=== PATIENT | female | born 1945 | race Caucasian/White ===

== ENCOUNTER 2016-06-22 12:16 | Emergency (ER) | payer OTHER ==
--- NOTE | 2016-06-22 12:46 | DIAGNOSTIC IMAGING REPORT ---
PROCEDURE: CT HEAD WITHOUT CONTRAST INDICATION: STROKE TECHNIQUE: Axial CT images were acquired through the head. Coronal and sagittal reformations were created. COMPARISON: None. FINDINGS: No intracranial hemorrhage or extraaxial fluid collections. Ventricles are normal in size, shape and position. There is no mass, mass effect or midline shift. The mosquera-white matter differentiation is normal. There is no edema. The calvarium is intact. The paranasal sinuses and mastoid air cells are normally aerated. The extracranial soft tissues and orbits are normal. IMPRESSION: 1. No CT evidence of acute intracranial process. 2. Findings discussed with emergency department at 12:[address] scans at this facility use dose modulation, iterative reconstruction, and/or weight-based dosing when appropriate to reduce radiation dose to as low as reasonably achievable.
--- NOTE | 2016-06-22 13:00 | DIAGNOSTIC IMAGING REPORT ---
PROCEDURE: XR CHEST 1 VIEW INDICATION: ALTERED MENTAL STATUS TECHNIQUE: Portable AP view 12:47 p.m. COMPARISON: None. FINDINGS: Lungs are clear. Heart and mediastinum are normal. Thorax is normal. IMPRESSION: 1. Negative chest.
--- NOTE | 2016-06-22 13:55 | ED CLINICAL REPORT ---
Clinical Report - Physicians/Mid Levels [facility] [address] [place] [address] 06/22/2016 12:15 Patient: TIFFANIE HAMILTON Time Seen: 12:20. Arrived- By ambulance. Historian- EMS personnel. HISTORY OF PRESENT ILLNESS Chief Complaint: CHANGED MENTAL STATUS and CONFUSION. The patient has been confused and is described as having decreased responsiveness. (The patient was attending an appointment with the counselor next door at [facility]. Apparently during the visit she had become somnolent and less responsive. Medics report that when they arrived there she was conversant. However they say she also seemed anxious and was slow to respond. They said that a FAST exam was unremarkable.). This started just prior to arrival and is still present. It was abrupt in onset. No weakness or numbness. No difficulty walking. Usually is alert and oriented X3 and usually has normal mobility. Similar symptoms previously: Several times. ( She reports that in the past she had had a traumatic head injury. She had subsequent bouts of "seizures." However, she denies having ever been on any seizure medications.). REVIEW OF SYSTEMS No chills, fever, sweats, calf pain or chest pain. No cough, difficulty breathing, pedal edema, palpitations or abdominal pain. No constipation, diarrhea, nausea, vomiting or urinary problems. All systems otherwise negative, except as recorded above. PAST HISTORY ( PCP - [facility]). Problems: Head Injury. Seizure. Medications: Tums Oral. Pepto bisbo . Imodium A-D Oral. Allergies: No Known Drug Allergy. SOCIAL HISTORY Never smoker. No alcohol use or drug use. Residence: The patient has had multiple social stressors recently. She has recently been evicted from her apartment. She has 1 month to find another place to live. FAMILY HISTORY Denies family medical history. PHYSICAL EXAM Appearance: Alert. (tremulous). Head: Head atraumatic. Eyes: Pupils equal, round and reactive to light. ENT: Pharynx normal. Neck: Normal inspection. Neck supple. No meningeal signs or carotid bruit. CVS: Normal heart rate and rhythm. Heart sounds normal. Respiratory: No respiratory distress. Breath sounds normal. Abdomen: Soft and nontender. No organomegaly. Back: Normal inspection. Skin: Skin warm and dry. Normal skin color. No rash. Normal skin turgor. Extremities: Extremities exhibit normal ROM. No calf tenderness. No lower extremity edema. Neuro: Alert. Oriented X 3. Speech normal. Cranial nerves normal (as tested). No cerebellar findings. No motor deficit. No sensory deficit. LABS, X-RAYS, AND EKG EKG: Normal sinus rhythm. Rate: 67. Incomplete RBBB. Left axis deviation. Prior EKG unavailable. The study has been independently viewed by me. Chest X-ray: Normal Chest X-Ray. CT Head: No acute changes. The study was interpreted by the radiologist and contemporaneously by me. Laboratory Tests: UA-Culture if indicated: (MIYA: 06/22/2016 12:50) ( [facility] Final results Test Result Flag Units (Reference) URINE COLOR YELLOW URINE APPEARANCE CLEAR URINE GLUCOSE NEGATIVE (NEGATIVE) URINE BILIRUBIN NEGATIVE (NEGATIVE) URINE KETONE NEGATIVE (NEGATIVE) URINE SPECIFIC GRAVITY 1.010 (1.010-1.030) URINE PH 6.0 (5.0-8.0) URINE PROTEIN NEGATIVE (NEGATIVE) URINE UROBILINOGEN 0.2 EU/dL (0.2-1.0) URINE NITRITE NEGATIVE (NEGATIVE) URINE BLOOD TRACE-LYSED (NEGATIVE) URINE LEUK ESTERASE NEGATIVE (NEGATIVE) URINE RBC 0-1 rbc/hpf (0-1) URINE WBC 0-1 wbc/hpf (0-1) URINE EPITHELIAL CELLS 0-1 EPI/hpf (0-5) URINE BACTERIA TRACE (<1+) (NONE SEEN) URINE COMMENT CULT NOT INDICATED URINE CULTURES ARE SET-UP BASED ON THE FOLLOWING CRITERIA:POSITIVE NITRITEPOSITIVE LEUKOCYTE ESTERASEGREATER THAN 10 WHITE BLOOD CELLSMODERATE (2+) OR GREATER BACTERIA CBC w Diff: (MIYA: 06/22/2016 12:30) ( [facility] 06/22/2016 12:41) Final results Test Result Flag Units (Reference) WHITE BLOOD COUNT 6.8 K/uL (4.5-11.5) RED BLOOD COUNT 4.78 M/uL (4.00-5.20) HEMOGLOBIN 13.9 gm/dL (12.0-16.0) HEMATOCRIT 42.1 % (36.0-46.0) MEAN CELL VOLUME 88 fL (80-100) MEAN CORPUSCULAR HGB 29 pg (26-34) MEAN CORPUSCULAR HGB CONC 33 g/dL (31-37) RED CELL DISTRIBUTION WIDTH 13.0 % (11.6-14.8) PLATELET COUNT 204 K/uL (150-400) NEUTROPHIL % 49.0 L % (50-75) LYMPH % 36.7 % (25-40) MONO % 8.0 % (3-14) EOSINOPHIL % 5.7 H % (0-4) BASOPHIL % 0.6 % (0-2) PT with INR: (MIYA: 06/22/2016 12:30) ( [facility] 06/22/2016 12:49) Final results Test Result Flag Units (Reference) INR 1.0 (0.8-1.2) Low Intensity Therapy: INR 1.5-2.0 PT range 18.5-23.1Mod.Intensity Therapy: INR 2.0-3.0 PT range 23.1-31.5High Intensity Therapy: INR 2.5-3.5 PT range 27.4-35.5High Intensity Therapy 2: INR 3.0-4.0 PT range 31.5-39.3 APTT 31 SECONDS (24-34) D-DIMER QUANTITATIVE 0.42 ug/mLFEU (0.27-0.52) The primary value of this quantitative assay relates toits negative predictive value (i.e. exclusion) of pulmonaryembolism/deep vein thrombosis/DIC.Elevated levels of d-dimer may also occur with:, age, cancer, inflammation, liver disease,post-op, infection, hematoma, coronary disease, peripheralarteriopathy, bleeding disorders and thrombolytic treatment.Results should be correlated with other clinical andradiological data.Testing Methodology: Latex Immunoassay Urine Drug Screen: (MIYA: 06/22/2016 12:50) ( [facility] 13[facility]36[facility] Final results Test Result Flag Units (Reference) AMPHETAMINE/METHAMPHETAMINE NEGATIVE (NEGATIVE) BARBITURATE NEGATIVE (NEGATIVE) BENZODIAZEPINE NEGATIVE (NEGATIVE) CANNABINOID NEGATIVE (NEGATIVE) COCAINE NEGATIVE (NEGATIVE) ECSTASY NEGATIVE (NEGATIVE) METHADONE NEGATIVE (NEGATIVE) OPIATE NEGATIVE (NEGATIVE) The urine drug screen is a qualitative screening test fordrug overdose and abuse. All screen results should beconsidered as presumptive.Drugs screened for are as follows:BenzodiazepinesCocaineAmphetamines/MetamphetaminesTHC (Tetrahydrocannabinol)OpiatesBarbituratesEcstasyMethadonePositive results are unconfirmed. For confirmation, notifythe lab for the specimen to be sent to the reference lab.All confirmations must be performed by a differentmethodology.The ingestion of natural herbal and plant productscontaining Ephedra/Ephedra metabolites can produce in urineone or more substances capable of cross reacting withamphetamine/methamphetamine immunoassays. These testsprovide a preliminary result only. A more specificalternative chemical method must be used to obtain aconfirmed analytical result. BNP: (MIYA: 06/22/2016 12:30) ( [facility] 06/22/2016 13:00) Final results Test Result Flag Units (Reference) B-TYPE NATRIURETIC PEPTIDE 50.7 pg/ml (5-100) CMP: (MIYA: 06/22/2016 12:30) ( [facility] 06/22/2016 13:03) Final results Test Result Flag Units (Reference) GLUCOSE 79 mg/dL (70-110) BUN 17 mg/dL (7-18) CREATININE 0.8 mg/dL (0.6-1.3) Estimated GFR >60 mL/min Estimated GFR- >60 mL/min Note: Persistent reduction over 3 months in eGFR<60 mL/min/1.73 m2 defines CKD. Patients with eGFR values>=60 mL/min/1.73 m2 may also have CKD if evidence ofpersistent proteinuria. Additional information may be foundat www.kidney.org. SODIUM 141 mmol/L (136-145) POTASSIUM 3.6 mmol/L (3.5-5.1) CHLORIDE 105 mmol/L (98-107) CARBON DIOXIDE 27 mmol/L (21-32) CALCIUM 9.4 mg/dL (8.5-10.1) TOTAL PROTEIN 7.4 g/dL (6.4-8.2) ALBUMIN 3.7 g/dL (3.3-5.0) BILIRUBIN, TOTAL 0.3 mg/dL (0.0-1.0) ALKALINE PHOSPHATASE 96 U/L (46-116) AST (SGOT) 28 U/L (15-37) ALT (SGPT) 31 U/L (12-78) LIPASE 285 U/L (73-393) AMYLASE 80 U/L (25-115) CPK 66 U/L (24-260) TROPONIN I <0.05 ng/mL (0.00-1.5) TROPONIN REFERENCE RANGE:<0.1 NEGATIVE0.1-1.5 INDETERMINANT>1.5 POSITIVE ETHYL ALCOHOL < 3.0 L mg/dL (3-10) . PROGRESS AND PROCEDURES Course of Care: Patient is stable. Patient/family counseled. Old medical records reviewed. Disposition: Discharged. Condition: stable. CLINICAL IMPRESSION Acute mental status change with lethargy and confusion (resolved). Possible postictal state. INSTRUCTIONS No driving or operating machinery. Warnings: Further evaluation is necessary. GENERAL WARNINGS: Return or contact your physician immediately if your condition worsens or changes unexpectedly, if not improving as expected, or if other problems arise. Your Current Medications: CONTINUE TAKING THE FOLLOWING MEDICATIONS: Imodium A-D Oral. Pepto bisbo *. Tums Oral. Follow-up: Follow up with a neurologist- as recommended by your primary care physician. Understanding of the discharge instructions verbalized by patient. Follow-up with: [facility], , , [address], , [place], [address] Follow up tomorrow. Call for an appointment. (Electronically signed by Indra Carreno MD 06/30/2016 1:53)
--- NOTE | 2016-06-22 13:55 | ED CLINICAL REPORT ---
Clinical Report - Physicians/Mid Levels [facility] [address] [place] [address] 06/22/2016 12:15 Patient: TIFFANIE HAMILTON Time Seen: 12:20. Arrived- By ambulance. Historian- EMS personnel. HISTORY OF PRESENT ILLNESS Chief Complaint: CHANGED MENTAL STATUS and CONFUSION. The patient has been confused and is described as having decreased responsiveness. (The patient was attending an appointment with the counselor next door at [facility]. Apparently during the visit she had become somnolent and less responsive. Medics report that when they arrived there she was conversant. However they say she also seemed anxious and was slow to respond. They said that a FAST exam was unremarkable.). This started just prior to arrival and is still present. It was abrupt in onset. No weakness or numbness. No difficulty walking. Usually is alert and oriented X3 and usually has normal mobility. Similar symptoms previously: Several times. ( She reports that in the past she had had a traumatic head injury. She had subsequent bouts of "seizures." However, she denies having ever been on any seizure medications.). REVIEW OF SYSTEMS No chills, fever, sweats, calf pain or chest pain. No cough, difficulty breathing, pedal edema, palpitations or abdominal pain. No constipation, diarrhea, nausea, vomiting or urinary problems. All systems otherwise negative, except as recorded above. PAST HISTORY ( PCP - [facility]). Problems: Head Injury. Seizure. Medications: Tums Oral. Pepto bisbo . Imodium A-D Oral. Allergies: No Known Drug Allergy. SOCIAL HISTORY Never smoker. No alcohol use or drug use. Residence: The patient has had multiple social stressors recently. She has recently been evicted from her apartment. She has 1 month to find another place to live. FAMILY HISTORY Denies family medical history. PHYSICAL EXAM Appearance: Alert. (tremulous). Head: Head atraumatic. Eyes: Pupils equal, round and reactive to light. ENT: Pharynx normal. Neck: Normal inspection. Neck supple. No meningeal signs or carotid bruit. CVS: Normal heart rate and rhythm. Heart sounds normal. Respiratory: No respiratory distress. Breath sounds normal. Abdomen: Soft and nontender. No organomegaly. Back: Normal inspection. Skin: Skin warm and dry. Normal skin color. No rash. Normal skin turgor. Extremities: Extremities exhibit normal ROM. No calf tenderness. No lower extremity edema. Neuro: Alert. Oriented X 3. Speech normal. Cranial nerves normal (as tested). No cerebellar findings. No motor deficit. No sensory deficit. LABS, X-RAYS, AND EKG EKG: Normal sinus rhythm. Rate: 67. Incomplete RBBB. Left axis deviation. Prior EKG unavailable. The study has been independently viewed by me. Chest X-ray: Normal Chest X-Ray. CT Head: No acute changes. The study was interpreted by the radiologist and contemporaneously by me. Laboratory Tests: UA-Culture if indicated: (MIYA: 06/22/2016 12:50) ( [facility] Final results Test Result Flag Units (Reference) URINE COLOR YELLOW URINE APPEARANCE CLEAR URINE GLUCOSE NEGATIVE (NEGATIVE) URINE BILIRUBIN NEGATIVE (NEGATIVE) URINE KETONE NEGATIVE (NEGATIVE) URINE SPECIFIC GRAVITY 1.010 (1.010-1.030) URINE PH 6.0 (5.0-8.0) URINE PROTEIN NEGATIVE (NEGATIVE) URINE UROBILINOGEN 0.2 EU/dL (0.2-1.0) URINE NITRITE NEGATIVE (NEGATIVE) URINE BLOOD TRACE-LYSED (NEGATIVE) URINE LEUK ESTERASE NEGATIVE (NEGATIVE) URINE RBC 0-1 rbc/hpf (0-1) URINE WBC 0-1 wbc/hpf (0-1) URINE EPITHELIAL CELLS 0-1 EPI/hpf (0-5) URINE BACTERIA TRACE (<1+) (NONE SEEN) URINE COMMENT CULT NOT INDICATED URINE CULTURES ARE SET-UP BASED ON THE FOLLOWING CRITERIA:POSITIVE NITRITEPOSITIVE LEUKOCYTE ESTERASEGREATER THAN 10 WHITE BLOOD CELLSMODERATE (2+) OR GREATER BACTERIA CBC w Diff: (MIYA: 06/22/2016 12:30) ( [facility] 12[facility]41[facility] Final results Test Result Flag Units (Reference) WHITE BLOOD COUNT 6.8 K/uL (4.5-11.5) RED BLOOD COUNT 4.78 M/uL (4.00-5.20) HEMOGLOBIN 13.9 gm/dL (12.0-16.0) HEMATOCRIT 42.1 % (36.0-46.0) MEAN CELL VOLUME 88 fL (80-100) MEAN CORPUSCULAR HGB 29 pg (26-34) MEAN CORPUSCULAR HGB CONC 33 g/dL (31-37) RED CELL DISTRIBUTION WIDTH 13.0 % (11.6-14.8) PLATELET COUNT 204 K/uL (150-400) NEUTROPHIL % 49.0 L % (50-75) LYMPH % 36.7 % (25-40) MONO % 8.0 % (3-14) EOSINOPHIL % 5.7 H % (0-4) BASOPHIL % 0.6 % (0-2) PT with INR: (MIYA: 06/22/2016 12:30) ( [facility]2016 12:49[facility] Final results Test Result Flag Units (Reference) INR 1.0 (0.8-1.2) Low Intensity Therapy: INR 1.5-2.0 PT range 18.5-23.1Mod.Intensity Therapy: INR 2.0-3.0 PT range 23.1-31.5High Intensity Therapy: INR 2.5-3.5 PT range 27.4-35.5High Intensity Therapy 2: INR 3.0-4.0 PT range 31.5-39.3 APTT 31 SECONDS (24-34) D-DIMER QUANTITATIVE 0.42 ug/mLFEU (0.27-0.52) The primary value of this quantitative assay relates toits negative predictive value (i.e. exclusion) of pulmonaryembolism/deep vein thrombosis/DIC.Elevated levels of d-dimer may also occur with:, age, cancer, inflammation, liver disease,post-op, infection, hematoma, coronary disease, peripheralarteriopathy, bleeding disorders and thrombolytic treatment.Results should be correlated with other clinical andradiological data.Testing Methodology: Latex Immunoassay Urine Drug Screen: (MIYA: 06/22/2016 12:50) ( [facility]36[facility] Final results Test Result Flag Units (Reference) AMPHETAMINE/METHAMPHETAMINE NEGATIVE (NEGATIVE) BARBITURATE NEGATIVE (NEGATIVE) BENZODIAZEPINE NEGATIVE (NEGATIVE) CANNABINOID NEGATIVE (NEGATIVE) COCAINE NEGATIVE (NEGATIVE) ECSTASY NEGATIVE (NEGATIVE) METHADONE NEGATIVE (NEGATIVE) OPIATE NEGATIVE (NEGATIVE) The urine drug screen is a qualitative screening test fordrug overdose and abuse. All screen results should beconsidered as presumptive.Drugs screened for are as follows:BenzodiazepinesCocaineAmphetamines/MetamphetaminesTHC (Tetrahydrocannabinol)OpiatesBarbituratesEcstasyMethadonePositive results are unconfirmed. For confirmation, notifythe lab for the specimen to be sent to the reference lab.All confirmations must be performed by a differentmethodology.The ingestion of natural herbal and plant productscontaining Ephedra/Ephedra metabolites can produce in urineone or more substances capable of cross reacting withamphetamine/methamphetamine immunoassays. These testsprovide a preliminary result only. A more specificalternative chemical method must be used to obtain aconfirmed analytical result. BNP: (MIYA: 06/22/2016 12:30) ( [facility] 06/22/2016 13:00) Final results Test Result Flag Units (Reference) B-TYPE NATRIURETIC PEPTIDE 50.7 pg/ml (5-100) CMP: (MIYA: 06/22/2016 12:30) ( [facility] 06/22/2016 13:03) Final results Test Result Flag Units (Reference) GLUCOSE 79 mg/dL (70-110) BUN 17 mg/dL (7-18) CREATININE 0.8 mg/dL (0.6-1.3) Estimated GFR >60 mL/min Estimated GFR- >60 mL/min Note: Persistent reduction over 3 months in eGFR<60 mL/min/1.73 m2 defines CKD. Patients with eGFR values>=60 mL/min/1.73 m2 may also have CKD if evidence ofpersistent proteinuria. Additional information may be foundat www.kidney.org. SODIUM 141 mmol/L (136-145) POTASSIUM 3.6 mmol/L (3.5-5.1) CHLORIDE 105 mmol/L (98-107) CARBON DIOXIDE 27 mmol/L (21-32) CALCIUM 9.4 mg/dL (8.5-10.1) TOTAL PROTEIN 7.4 g/dL (6.4-8.2) ALBUMIN 3.7 g/dL (3.3-5.0) BILIRUBIN, TOTAL 0.3 mg/dL (0.0-1.0) ALKALINE PHOSPHATASE 96 U/L (46-116) AST (SGOT) 28 U/L (15-37) ALT (SGPT) 31 U/L (12-78) LIPASE 285 U/L (73-393) AMYLASE 80 U/L (25-115) CPK 66 U/L (24-260) TROPONIN I <0.05 ng/mL (0.00-1.5) TROPONIN REFERENCE RANGE:<0.1 NEGATIVE0.1-1.5 INDETERMINANT>1.5 POSITIVE ETHYL ALCOHOL < 3.0 L mg/dL (3-10) . PROGRESS AND PROCEDURES Course of Care: Patient is stable. Patient/family counseled. Old medical records reviewed. Disposition: Discharged. Condition: stable. CLINICAL IMPRESSION Acute mental status change with lethargy and confusion (resolved). Possible postictal state. INSTRUCTIONS No driving or operating machinery. Warnings: Further evaluation is necessary. GENERAL WARNINGS: Return or contact your physician immediately if your condition worsens or changes unexpectedly, if not improving as expected, or if other problems arise. Your Current Medications: CONTINUE TAKING THE FOLLOWING MEDICATIONS: Imodium A-D Oral. Pepto bisbo *. Tums Oral. Follow-up: Follow up with a neurologist- as recommended by your primary care physician. Understanding of the discharge instructions verbalized by patient. Follow-up with: [facility], , , [address], , [place], [address] Follow up tomorrow. Call for an appointment. (Electronically signed by Indra Carreno MD 06/30/2016 1:53)
--- NOTE | 2016-06-22 13:55 | ED NURSING NOTES ---
Clinical Report - Nurses [facility] [place] [address] 06/22/2016 12:15 Patient: TIFFANIE HAMILTON TRIAGE Triage time 12:15. Acuity: LEVEL 2. Chief Complaint: WEAKNESS and DISORIENTED and DECREASED RESPONSIVENESS. 12:24 06/22/16. DORIS COMA SCORE: Doris Coma Scale: 14- eyes open spontaneously (4); best verbal response- disoriented (4); best motor response- obeys commands (6). --12:24 Marli Madrid R.N. 12:24 06/22/16. HR: 80. O2 saturation: 100%. --12:24 aMrli Madrid R.N. 12:28 06/22/16. BP: 168/76. HR: 79. O2 saturation: 99% on room air. Temp: 97.6 F (oral). --12:30 Marli Madrid R.N. Weight: 70.4 kg measured. Height/Length: 67 inches Estimated. BMI: 24.3. --12:16 Marli Madrid R.N. Medications Imodium A-D Oral. --12:56 Ni Ruggiero R.N. Pepto bisbo . --12:56 iN Ruggiero R.N. Tums Oral. --12:56 Ni Ruggiero R.N. Allergies No Known Drug Allergy. --12:57 Ni Ruggiero R.N. History Arrived by private vehicle. Historian: EMS. Primary physician (EITAN wesley [facility]). ( began "slouching" to the right at a counseling session at [facility], disoriented, unable to answer questions.). This started just prior to arrival. Treatment COMMERCIAL ILLUSTRATOR: None. Finger stick glucose performed (138). BP: 194/100. HR: 78. RR: 24. Temp: 97.8. FALL RISK ASSESSMENT: Fall risk assessment completed. No fall risk identified. NUTRITIONAL RISK ASSESSMENT: The nutritional risk assessment revealed no deficiencies. FUNCTIONAL ASSESSMENT: Functional assessment: no impairments noted. LEARNING NEEDS ASSESSMENT: The learning needs assessment revealed no barriers. SKIN INTEGRITY ASSESSMENT: Skin integrity risk assessment completed. No skin integrity risk identified. --12:24 Marli Madrid R.N. PROBLEMS: Head Injury. Seizure. --12:29 Marli Madrid R.N. Interventions ID band on patient. To treatment room. --12:24 Marli Madrid R.N. PHYSICAL ASSESSMENT 12:26 06/22/16. To room via stretcher. GENERAL / NEURO / PSYCH: The patient is disoriented. HEENT: No facial asymmetry noted. RESPIRATORY: Respirations not labored. CVS: Capillary refill less than 2 seconds. SKIN: Skin is intact, warm and dry. --12:26 Marli Mdarid R.N. GENERAL / NEURO / PSYCH: The patient is disoriented to time and situation. --12:32 Marli Madrid R.N. 12:36 06/22/16. GENERAL / NEURO / PSYCH: Moves extremities with decreased movement of the right upper and lower and left upper and lower extremity (no hemiparesis, non purposeful, jerky movements to all extremities). --12:36 Marli Madrid R.N. NURSING PROGRESS NOTES 12:19. The plan of care for this patient has been created. Patient gowned. Head of bed elevated. Call light placed in reach. Side rails up x 2. Bed placed in lowest position. Brakes of bed on. Patient ready for evaluation- chart flagged and ED physician notified. --12:25 Marli Madrid R.N. 12:20. Patient transported to CT by stretcher with tech. --12:25 Marli Madrid R.N. 12:28 06/22/16. Patient returned from CT. --12:28 Marli Madrid R.N. 12:29 06/22/2016 Site #1 started via IV in the right forearm with an 20g angiocath, with aseptic technique and good blood return; one attempt. Blood drawn: rainbow set. Labeled in the presence of the patient and sent to the lab. Saline lock flushed with 10 mL saline. --12:31 Marli Madrid R.N. EKG time: (1238). EKG was ordered, performed by a tech and shown to the ED physician. --12:41 Yoko Mccartney, ER Tech1 Care transferred and report received (Christianne rn). --12:53 Ni Ruggiero R.N. 12:57 06/22/16. BP: 168/76. HR: 74. RR: 23. O2 saturation: 100%. --12:59 Ni Ruggiero R.N. 12:45. ( Xray done in the room.). --12:59 Ni Ruggiero R.N. EKG time: (1428). EKG was ordered, performed by a tech and shown to the ED physician. EKG needed to be redone because too much interference, this is the redo for the first one. --14:34 Vandana Bernard, ER Tech1. Intake & Output Urine: 1200 mL, with return of yellow-colored clear urine. --15:36 Marika Heaton R.N. DISPOSITION / DISCHARGE 15:32 06/22/2016 Site #1 removed upon discharge. Catheter intact. Manual pressure and bandaid applied. --15:32 Marika Heaton R.N. Sousa discontinued. --15:32 Marika Heaton R.N. 15:32 06/22/16. BP: 153/77. HR: 67. RR: 12. O2 saturation: 100%. Temp: 97.5 F. Pain level now: 0/10. Additional comments: HR: NSR noted. --15:34 Marika Heaton R.N. Condition at departure: stable. No learning barriers present. Discharge instructions provided and reviewed with the patient. Reviewed referral to a neurologist for followup (PCP). Patient verbalized understanding. Written instructions provided in Chilean. The patient was discharged home and accompanied by behavioral health counselor. She left the Emergency Department ambulatory and via private vehicle. Manager Art driving. Medication list reviewed and validated. --15:35 Marika eHaton R.N. Departure time: 1640. Medication list reviewed and validated. --16:31 Marika Heaton R.N. Departure time: correction to prior: 1540. --22:16 Marika Heaton R.N. Locked/Released at 06/22/2016 22:18 by Marika Heaton R.N.
--- NOTE | 2016-06-22 13:55 | ED ORDER SUMMARY ---
..... Patient: TIFFANIE HAMILTON OrderSheet [facility] VisitID: [id number] [place], [place] [id number] 70y, F Registration Date/Time: 06/22/2016 ORDER SHEET Weight: 70.4 kg (measured) Allergies: No Known Drug Allergy GENERAL ORDERS: CT Head w Cont (No) (N/A) Urgent (12:20 06/22/2016 Emily per protocol) (Cancelled: Other12:21 Emily) CT Head wo Cont Urgent (12:22 06/22/2016 Emily per protocol) (12:32 KWilliams R.N.) Chest 1V Urgent (12:23 06/22/2016 Elkin GONZALEZ) (Ack 12:43 Emily) (12:59 NHouse ER Tech1) Supervisor Shop (Continuous) (12:24 06/22/2016 Elkin GONZALEZ) (12:32 KWilliams R.N.) CBC w Diff Urgent (12:24 06/22/2016 Elkin GONZALEZ) (12:32 KWilliams R.N.) (Ack 12:32 Emily) CMP Urgent (12:24 06/22/2016 Elkin GONZALEZ) (12:32 KWilliams R.N.) (Ack 12:32 Emily) UA-Culture if indicated Urgent (12:24 06/22/2016 Elkin GONZALEZ) (Ack 12:32 Emily) (12:44 KWilliams R.N.) PT with INR Urgent (12:24 06/22/2016 Elkin GONZALEZ) (12:32 KWilliams R.N.) (Ack 12:33 Emily) PTT Urgent (12:24 06/22/2016 Elkin GONZALEZ) (12:32 KWilliams R.N.) (Ack 12:33 Emily) Amylase Urgent (12:06/22/2016 Elkin GONZALEZ) (12:32 KWilliams R.N.) (Ack 12:33 Emily) Lipase Urgent (12:06/22/2016 Elkin GONZALEZ) (12:32 KWilliams R.N.) (Ack 12:33 Emily) CPK Urgent (12:24 06/22/2016 Elkin GONZALEZ) (12:32 KWilliams R.N.) (Ack 12:33 Emily) Troponin-I Urgent (12:06/22/2016 Elkin GONZALEZ) (12:32 KWilliams R.N.) (Ack 12:34 Emily) Urine Drug Screen Urgent (12:06/22/2016 Elkin GONZALEZ) (Ack 12:34 Emily) (12:44 KWilliams R.N.) Ethyl Alcohol Urgent (12:06/22/2016 Elkin GONZALEZ) (12:32 KWilliams R.N.) D-Dimer Urgent (12:06/22/2016 Elkin GONZALEZ) (12:32 KWilliams R.N.) BNP Urgent (12:06/22/2016 Elkin GONZALEZ) (12:32 KWilliams R.N.) Oxygen (2 L/min) (NC) (12:06/22/2016 Elkin GONZALEZ) (12:44 KWilliams R.N.) Pulse oximeter (12:06/22/2016 Elkin GONZALEZ) (12:32 KWilliams R.N.) EKG - ER Stat (12:06/22/2016 Elkin GONZALEZ) (12:39 KWilliams R.N.) MEDICATION ORDERS: IV FLUIDS: IV Saline Lock (12:06/22/2016 Elkin GONZALEZ) (12:39 KWilliams R.N.) ORDER SHEET NOTES: [Electronically signed by Marika Heaton R.N. (22:18 06/22/2016)] [Electronically signed by Indra Carreno MD (01:53 06/30/2016)] [Electronically locked/signed by Marika Heaton R.N. (22:18 06/22/2016)]
--- NOTE | 2016-06-22 13:55 | ED ORDER SUMMARY ---
..... Patient: TIFFANIE HAMILTON OrderSheet [facility] VisitID: [id number] [place], [place] [id number] 70y, F Registration Date/Time: 06/22/2016 ORDER SHEET Weight: 70.4 kg (measured) Allergies: No Known Drug Allergy GENERAL ORDERS: CT Head w Cont (No) (N/A) Urgent (12:20 06/22/2016 Emily per protocol) (Cancelled: Other12:21 Emily) CT Head wo Cont Urgent (12:22 06/22/2016 Emily per protocol) (12:32 KWilliams R.N.) Chest 1V Urgent (12:23 06/22/2016 Elkin GONZALEZ) (Ack 12:43 Emily) (12:59 NHouse ER Tech1) Correctional Corporal (Continuous) (12:24 06/22/2016 Elkin GONZALEZ) (12:32 KWilliams R.N.) CBC w Diff Urgent (12:24 06/22/2016 Elkin GONZALEZ) (12:32 KWilliams R.N.) (Ack 12:32 Emily) CMP Urgent (12:24 06/22/2016 Elkin GONZALEZ) (12:32 KWilliams R.N.) (Ack 12:32 Emily) UA-Culture if indicated Urgent (12:24 06/22/2016 Elkin GONZALEZ) (Ack 12:32 Emily) (12:44 KWilliams R.N.) PT with INR Urgent (12:24 06/22/2016 Elkin GONZALEZ) (12:32 KWilliams R.N.) (Ack 12:33 Emily) PTT Urgent (12:24 06/22/2016 Elkin GONZALEZ) (12:32 KWilliams R.N.) (Ack 12:33 Emily) Amylase Urgent (12:06/22/2016 Elkin GONZALEZ) (12:32 KWilliams R.N.) (Ack 12:33 Emily) Lipase Urgent (12:06/22/2016 Elkin GONZALEZ) (12:32 KWilliams R.N.) (Ack 12:33 Emily) CPK Urgent (12:24 06/22/2016 Elkin GONZALEZ) (12:32 KWilliams R.N.) (Ack 12:33 Emily) Troponin-I Urgent (12:06/22/2016 Elkin GONZALEZ) (12:32 KWilliams R.N.) (Ack 12:34 Emily) Urine Drug Screen Urgent (12:06/22/2016 Elkin GONZALEZ) (Ack 12:34 Emily) (12:44 KWilliams R.N.) Ethyl Alcohol Urgent (12:06/22/2016 Elkin GONZALEZ) (12:32 KWilliams R.N.) D-Dimer Urgent (12:06/22/2016 Elkin GONZALEZ) (12:32 KWilliams R.N.) BNP Urgent (12:06/22/2016 Elkin GONZALEZ) (12:32 KWilliams R.N.) Oxygen (2 L/min) (NC) (12:06/22/2016 Elkin GONZALEZ) (12:44 KWilliams R.N.) Pulse oximeter (12:06/22/2016 Elkin GONZALEZ) (12:32 KWilliams R.N.) EKG - ER Stat (12:06/22/2016 Elkin GONZALEZ) (12:39 KWilliams R.N.) MEDICATION ORDERS: IV FLUIDS: IV Saline Lock (12:06/22/2016 Elkin GONZALEZ) (12:39 KWilliams R.N.) ORDER SHEET NOTES: [Electronically signed by Marika Heaton R.N. (22:18 06/22/2016)] [Electronically signed by Indra Carreno MD (01:53 06/30/2016)] [Electronically locked/signed by Marika Heaton R.N. (22:18 06/22/2016)]
--- NOTE | 2016-06-22 13:55 | ED NURSING NOTES ---
Clinical Report - Nurses [facility] [place] [address] 06/22/2016 12:15 Patient: TIFFANIE HAMILTON TRIAGE Triage time 12:15. Acuity: LEVEL 2. Chief Complaint: WEAKNESS and DISORIENTED and DECREASED RESPONSIVENESS. 12:24 06/22/16. DORIS COMA SCORE: Doris Coma Scale: 14- eyes open spontaneously (4); best verbal response- disoriented (4); best motor response- obeys commands (6). --12:24 Marli Madrid R.N. 12:24 06/22/16. HR: 80. O2 saturation: 100%. --12:24 Marli Madrid R.N. 12:28 06/22/16. BP: 168/76. HR: 79. O2 saturation: 99% on room air. Temp: 97.6 F (oral). --12:30 Marli Madrid R.N. Weight: 70.4 kg measured. Height/Length: 67 inches Estimated. BMI: 24.3. --12:16 Marli Madrid R.N. Medications Imodium A-D Oral. --12:56 Ni Ruggiero R.N. Pepto bisbo . --12:56 Ni Ruggiero R.N. Tums Oral. --12:56 Ni Ruggiero R.N. Allergies No Known Drug Allergy. --12:57 Ni Ruggiero R.N. History Arrived by private vehicle. Historian: EMS. Primary physician (EITAN wesley [facility]). ( began "slouching" to the right at a counseling session at [facility], disoriented, unable to answer questions.). This started just prior to arrival. Treatment BAR ROLLER: None. Finger stick glucose performed (138). BP: 194/100. HR: 78. RR: 24. Temp: 97.8. FALL RISK ASSESSMENT: Fall risk assessment completed. No fall risk identified. NUTRITIONAL RISK ASSESSMENT: The nutritional risk assessment revealed no deficiencies. FUNCTIONAL ASSESSMENT: Functional assessment: no impairments noted. LEARNING NEEDS ASSESSMENT: The learning needs assessment revealed no barriers. SKIN INTEGRITY ASSESSMENT: Skin integrity risk assessment completed. No skin integrity risk identified. --12:24 Marli Madrid R.N. PROBLEMS: Head Injury. Seizure. --12:29 Marli Madrid R.N. Interventions ID band on patient. To treatment room. --12:24 Marli Madrid R.N. PHYSICAL ASSESSMENT 12:26 06/22/16. To room via stretcher. GENERAL / NEURO / PSYCH: The patient is disoriented. HEENT: No facial asymmetry noted. RESPIRATORY: Respirations not labored. CVS: Capillary refill less than 2 seconds. SKIN: Skin is intact, warm and dry. --12:26 Marli Madrid R.N. GENERAL / NEURO / PSYCH: The patient is disoriented to time and situation. --12:32 Marli Madrid R.N. 12:36 06/22/16. GENERAL / NEURO / PSYCH: Moves extremities with decreased movement of the right upper and lower and left upper and lower extremity (no hemiparesis, non purposeful, jerky movements to all extremities). --12:36 Marli Madrid R.N. NURSING PROGRESS NOTES 12:19. The plan of care for this patient has been created. Patient gowned. Head of bed elevated. Call light placed in reach. Side rails up x 2. Bed placed in lowest position. Brakes of bed on. Patient ready for evaluation- chart flagged and ED physician notified. --12:25 Marli Madrid R.N. 12:20. Patient transported to CT by stretcher with tech. --12:25 Marli Madrid R.N. 12:28 06/22/16. Patient returned from CT. --12:28 Marli Madrid R.N. 12:29 06/22/2016 Site #1 started via IV in the right forearm with an 20g angiocath, with aseptic technique and good blood return; one attempt. Blood drawn: rainbow set. Labeled in the presence of the patient and sent to the lab. Saline lock flushed with 10 mL saline. --12:31 Marli Madrid R.N. EKG time: (1238). EKG was ordered, performed by a tech and shown to the ED physician. --12:41 Yoko Mccartney, ER Tech1 Care transferred and report received (Christianne rn). --12:53 Ni Ruggiero R.N. 12:57 06/22/16. BP: 168/76. HR: 74. RR: 23. O2 saturation: 100%. --12:59 Ni Ruggiero R.N. 12:45. ( Xray done in the room.). --12:59 Ni Ruggiero R.N. EKG time: (1428). EKG was ordered, performed by a tech and shown to the ED physician. EKG needed to be redone because too much interference, this is the redo for the first one. --14:34 Vandana Bernard, ER Tech1. Intake & Output Urine: 1200 mL, with return of yellow-colored clear urine. --15:36 Marika Heaton R.N. DISPOSITION / DISCHARGE 15:32 06/22/2016 Site #1 removed upon discharge. Catheter intact. Manual pressure and bandaid applied. --15:32 Marika Heaton R.N. Sousa discontinued. --15:32 Marika Heaton R.N. 15:32 06/22/16. BP: 153/77. HR: 67. RR: 12. O2 saturation: 100%. Temp: 97.5 F. Pain level now: 0/10. Additional comments: HR: NSR noted. --15:34 Marika Heaton R.N. Condition at departure: stable. No learning barriers present. Discharge instructions provided and reviewed with the patient. Reviewed referral to a neurologist for followup (PCP). Patient verbalized understanding. Written instructions provided in [place] Island[place]. The patient was discharged home and accompanied by aeronautical test engineer. She left the Emergency Department ambulatory and via private vehicle. Cost Clerk driving. Medication list reviewed and validated. --15:35 Marika Heaton R.N. Departure time: 1640. Medication list reviewed and validated. --16:31 Marika Heaton R.N. Departure time: correction to prior: 1540. --22:16 Marika Heaton R.N. Locked/Released at 06/22/2016 22:18 by Marika Heaton R.N.
--- NOTE | 2016-06-30 01:53 | ED DISCHARGE INSTRUCTIONS ---
Patient: TIFFANIE HAMILTON General Instructions [facility] VisitID: [id number] [address] [place] [address] 70y, F Registration Date/Time: 06/22/2016 Acute mental status change with lethargy and confusion (resolved). INSTRUCTIONS No driving or operating machinery. Warnings: Further evaluation is necessary. GENERAL WARNINGS: Return or contact your physician immediately if your condition worsens or changes unexpectedly, if not improving as expected, or if other problems arise. Your Current Medications: CONTINUE TAKING THE FOLLOWING MEDICATIONS: Imodium A-D Oral. Pepto bisbo *. Tums Oral. Follow-up: Follow up with a neurologist- as recommended by your primary care physician. Understanding of the discharge instructions verbalized by patient. Follow-up with: [facility], , , [address], [place], [address] Follow up tomorrow. Call for an appointment. ADDITIONAL INFORMATION Confusion Confusion is a change in a persons ability to think clearly. There may be trouble recognizing familiar people and places, or knowing what day it is. Memory, judgement and decision-making may also be affected. In severe cases there may be limited or no response to verbal commands. Confusion may occur suddenly or develop gradually over time. There are many injuries and medical conditions that can cause this problem. These include brain injury, side effect of medication, intoxication, withdrawal from drugs, infection, stroke, dementia,mental illness and other causes. The exam and testing today did not show the cause of this problem. Further testing will be needed. Specific treatment and hope for recovery depend on the cause of this symptom. Home Care: Be sure someone is with the confused person at all times. He/she should not be left alone or unsupervised. Keep medicines (prescription and htbs-iad-febmeit) in a secure place, under the caregivers control. A person with confusion should not be allowed to take their own medicines.This needs to be supervised by the caregiver. Ways to help a person with confusion: Activities:Establish a daily routine. Change can be a source of stress for someone with confusion. Make a time schedule for common tasks such as: bathing, dressing, taking medicines, meals, going for walks, shopping, naps and bed time. Communication:Speak slowly and clearly with a gentle tone of voice. Use short simple words and sentences. Ask one question at a time. Do not interrupt, criticize or argue. Be calm and supportive. Use friendly facial expressions. Use pointing and touching to help communicate. If there has been loss of long-term memory, do not ask questions about past events. This would only cause frustration for the person. Behavioral tips:Use lists, signs, family photos, clocks and calendars as memory aids. Label cabinets and drawers. Try to distract, not confront, the patient. When he/she becomes frustrated or upset, redirect his/her attention to eating or some other activity of interest. Medical-Legal tips: If this proves to be a permanent condition, talk to your doctor and/or twisting department end finder about getting a Power of Marketing Pr Intern for health care and for financial decisions. It is best to do this while the person can still sign legal documents and make his/roxy own legal decisions. Otherwise, a court order will be required. Follow-Up with the patients doctor or as advised by our staff for further testing. Get Prompt Medical Attention if any of the following occur: Frequent falling Refusal to eat or drink Violent behavior or behavior becomes too difficult to manage at home Increased drowsiness, or failure to respond normally Increasing headache, nausea or repeated vomiting Numbness or weakness of the face, one arm or one leg Slurred speech, trouble speaking, walking or seeing Fainting spell, dizziness or seizure Unexplained fever over 100.4 F (38.0 C) oral You have been given the following additional information: Confusion No driving or operating machinery. (Electronically signed by Indra Carreno MD 06/30/2016 1:53)
--- NOTE | 2016-06-30 01:53 | ED DISCHARGE INSTRUCTIONS ---
Patient: TIFFANIE HAMILTON General Instructions [facility] VisitID: [id number] [address] [place] [address] 70y, F Registration Date/Time: 06/22/2016 Acute mental status change with lethargy and confusion (resolved). INSTRUCTIONS No driving or operating machinery. Warnings: Further evaluation is necessary. GENERAL WARNINGS: Return or contact your physician immediately if your condition worsens or changes unexpectedly, if not improving as expected, or if other problems arise. Your Current Medications: CONTINUE TAKING THE FOLLOWING MEDICATIONS: Imodium A-D Oral. Pepto bisbo *. Tums Oral. Follow-up: Follow up with a neurologist- as recommended by your primary care physician. Understanding of the discharge instructions verbalized by patient. Follow-up with: [facility], , , [address], [place], [address] Follow up tomorrow. Call for an appointment. ADDITIONAL INFORMATION Confusion Confusion is a change in a persons ability to think clearly. There may be trouble recognizing familiar people and places, or knowing what day it is. Memory, judgement and decision-making may also be affected. In severe cases there may be limited or no response to verbal commands. Confusion may occur suddenly or develop gradually over time. There are many injuries and medical conditions that can cause this problem. These include brain injury, side effect of medication, intoxication, withdrawal from drugs, infection, stroke, dementia,mental illness and other causes. The exam and testing today did not show the cause of this problem. Further testing will be needed. Specific treatment and hope for recovery depend on the cause of this symptom. Home Care: Be sure someone is with the confused person at all times. He/she should not be left alone or unsupervised. Keep medicines (prescription and brkx-njo-vpstafe) in a secure place, under the caregivers control. A person with confusion should not be allowed to take their own medicines.This needs to be supervised by the caregiver. Ways to help a person with confusion: Activities:Establish a daily routine. Change can be a source of stress for someone with confusion. Make a time schedule for common tasks such as: bathing, dressing, taking medicines, meals, going for walks, shopping, naps and bed time. Communication:Speak slowly and clearly with a gentle tone of voice. Use short simple words and sentences. Ask one question at a time. Do not interrupt, criticize or argue. Be calm and supportive. Use friendly facial expressions. Use pointing and touching to help communicate. If there has been loss of long-term memory, do not ask questions about past events. This would only cause frustration for the person. Behavioral tips:Use lists, signs, family photos, clocks and calendars as memory aids. Label cabinets and drawers. Try to distract, not confront, the patient. When he/she becomes frustrated or upset, redirect his/her attention to eating or some other activity of interest. Medical-Legal tips: If this proves to be a permanent condition, talk to your doctor and/or call person about getting a Power of Appeals Assistant for health care and for financial decisions. It is best to do this while the person can still sign legal documents and make his/roxy own legal decisions. Otherwise, a court order will be required. Follow-Up with the patients doctor or as advised by our staff for further testing. Get Prompt Medical Attention if any of the following occur: Frequent falling Refusal to eat or drink Violent behavior or behavior becomes too difficult to manage at home Increased drowsiness, or failure to respond normally Increasing headache, nausea or repeated vomiting Numbness or weakness of the face, one arm or one leg Slurred speech, trouble speaking, walking or seeing Fainting spell, dizziness or seizure Unexplained fever over 100.4 F (38.0 C) oral You have been given the following additional information: Confusion No driving or operating machinery. (Electronically signed by Indra Carreno MD 06/30/2016 1:53)
--- NOTE | 2016-06-30 01:54 | ED MAR SUMMARY ---
..... Medication Administration Record [facility] [address] [place], [place] [id number] Patient: TIFFANIE HAMILTON Visit ID: [id number] 70y, F Weight: 70.4 kg Height/Length: 67 in BMI: 24.3 ALLERGIES: No Known Drug Allergy
--- NOTE | 2016-06-30 01:54 | ED MED RECONCILIATION SUMMARY ---
Patient: TIFFANIE HAMILTON Medication Reconciliation Report [facility] VisitID: [id number] [address] [place] [address] 70y, F Registration Date/Time: 06/22/2016 Weight: 70.4 kg Height/Length: 67 in. BMI: 24.3 ALLERGIES: No Known Drug Allergy The patient's Home Medications are listed below: CONTINUE TAKING THE FOLLOWING MEDICATIONS: Imodium A-D Oral Pepto bisbo Tums Oral The source(s) of the original Home Medication information: Not obtained. The following Medications were given to the patient in the Emergency Department: None. The following Medications were prescribed to the patient: None.
--- NOTE | 2016-06-30 01:54 | ED MAR SUMMARY ---
..... Medication Administration Record [facility] [address] [place], [place] [id number] Patient: TIFFANIE HAMILTON Visit ID: [id number] 70y, F Weight: 70.4 kg Height/Length: 67 in BMI: 24.3 ALLERGIES: No Known Drug Allergy
--- NOTE | 2016-06-30 01:54 | ED MED RECONCILIATION SUMMARY ---
Patient: TIFFANIE HAMILTON Medication Reconciliation Report [facility] VisitID: [id number] [address] [place] [address] 70y, F Registration Date/Time: 06/22/2016 Weight: 70.4 kg Height/Length: 67 in. BMI: 24.3 ALLERGIES: No Known Drug Allergy The patient's Home Medications are listed below: CONTINUE TAKING THE FOLLOWING MEDICATIONS: Imodium A-D Oral Pepto bisbo Tums Oral The source(s) of the original Home Medication information: Not obtained. The following Medications were given to the patient in the Emergency Department: None. The following Medications were prescribed to the patient: None.
== END 2016-06-22 15:40 | disposition home or self-care (01) ==
LOC: ED SRH 12:16
DX: R41.82 Altered mental status, unspecified (principal); R53.83 Other fatigue; R41.0 Disorientation, unspecified
CPT/HCPCS: 83475; 90004; 90100; 90616; 91320; 91556; 92010; 92235; 92530; 92610; 92760; 92761; 92762; 92763; 92764; 92765; 92766; 92767; 94001; 94060; 95059

== ENCOUNTER 2016-07-29 15:27 | Emergency (ER) | payer OTHER ==
--- NOTE | 2016-07-29 16:31 | DIAGNOSTIC IMAGING REPORT ---
PROCEDURE: CT HEAD WITHOUT CONTRAST INDICATION: DIZZINESS TECHNIQUE: Axial CT images were acquired through the head. Coronal and sagittal reformations were created. COMPARISON: Head CT 06/22/2016 FINDINGS: No intracranial hemorrhage or extraaxial fluid collections. Ventricles are normal in size, shape and position. There is no mass, mass effect or midline shift. The mosquera-white matter differentiation is normal. There is no edema. The calvarium is intact. The paranasal sinuses and mastoid air cells are normally aerated. The extracranial soft tissues and orbits are normal. IMPRESSION: 1. No CT evidence of acute intracranial process. All CT scans at this facility use dose modulation, iterative reconstruction, and/or weight-based dosing when appropriate to reduce radiation dose to as low as reasonably achievable.
--- NOTE | 2016-07-29 17:13 | ED ORDER SUMMARY ---
..... Patient: TIFFANIE HAMILTON OrderSheet [facility] VisitID: [id number] [place] [address] 70y, F Registration Date/Time: 07/29/2016 ORDER SHEET Weight: 71 kg (measured) Allergies: No Known Drug Allergy GENERAL ORDERS: Coffee Farmer (Continuous) (16:07/29/2016 HBivens A.R.N.P.) (Ack 16:02 TBergley) (16:12 LSullivan R.N.) CT Head wo Cont Urgent (16:07/29/2016 HBivens A.R.N.P.) (Ack 16:02 TBergley) (16:36 LSullivan R.N.) CBC w Diff Urgent (16:07/29/2016 HBivens A.R.N.P.) (Ack 16:02 TBergley) (16:35 TBergley) CMP Urgent (16:07/29/2016 HBivens A.R.N.P.) (Ack 16:02 TBergley) (16:35 TBergley) UA-Culture if indicated Urgent (16:00 07/29/2016 HBivens A.R.N.P.) (Ack 16:02 TBergley) (17:04 LSullivan R.N.) Urine Drug Screen Urgent (16:00 07/29/2016 HBivens A.R.N.P.) (Ack 16:02 TBergley) (17:04 LSullivan R.N.) EKG - ER Stat (16:07/29/2016 HBivens A.R.N.P.) (Ack 16:02 TBergley) (16:37 TBergley) MEDICATION ORDERS: IV FLUIDS: IV NS : initial bolus 1000 mL (1000 mL/hr), then none - (NOW) (16:07/29/2016 HBivens A.R.N.P.) (16:41 LSullivan R.N.) IV Saline Lock (:07/29/2016 HBivens A.R.N.P.) (16:12 LSullivan R.N.) ORDER SHEET NOTES: [Electronically signed by Sharon Reynolds (22:33 07/29/2016)] [Electronically signed by Rose Castro R.N. (06:45 08/12/2016)] [Electronically locked/signed by Rose Castro R.N. (06:45 08/12/2016)]
--- NOTE | 2016-07-29 17:13 | ED NURSING NOTES ---
Clinical Report - Nurses [facility] [place] [address] 07/29/2016 15:27 Patient: TIFFANIE HAMILTON TRIAGE Triage time 15:36. Acuity: LEVEL 3. Chief Complaint: ALTERED MENTAL STATUS and CONFUSED. Alert. --15:40 Kayce Valverde R.N. 15:35 07/29/16. BP: 151/96. HR: 73. RR: 18. O2 saturation: 95%. Temp: 97.7 F. Pain level now: 0/10. --15:40 Kayce Valverde R.N. Weight: 71 kg measured. Height/Length: 67 inches Per Patient. BMI: 24.5. --15:38 Kayce Valverde R.N. Medications Aspirin Oral (Tablet 325 mg) 1 tablet, every other day. --15:38 Kayce Valverde R.N. Allergies No Known Drug Allergy. --15:38 Kayce Valverde R.N. History Arrived by EMS. Historian: patient. Primary physician (Dr. Olmedo). This started just prior to arrival and today. SOCIAL HX: Never smoker. No alcohol use or drug use. --15:40 Kayce Valverde R.N. ( EMT reported pt was off balance, and fell forward when reaching to check for pronator drift, and has had ringing in her ears that is new). --15:41 Kayce Valverde R.N. PROBLEMS: Changed Mental Status. Head Injury. Seizure. --15:39 Kayce Valverde R.N. Interventions ID band on patient. To room. --15:40 Kayce Valverde R.N. PHYSICAL ASSESSMENT 15:53 07/29/16. GENERAL / NEURO / PSYCH: The patient is disoriented to situation. Speech within normal limits. Patient appears well-nourished and neat and clean. ( Pt doesn't know when symptoms started, states 2 days ago she didn't feel well, then this morning, tried to make a PCP appointment because she wasn't feeling well at all.). RESPIRATORY: Respirations not labored. --15:53 Kayce Valverde R.N. NURSING PROGRESS NOTES 16:00. Patient identifiers checked. Call light placed in reach. Bed placed in lowest position. Patient ready for evaluation. --16:11 Kayce Valverde R.N. Patient transported to [place] by stretcher with tech. --16:11 Kayce Valverde R.N. 15:57 07/29/2016 Site #1 started via IV in the left forearm with an 20g angiocath, with aseptic technique and good blood return; one attempt. Saline lock flushed with 10 mL saline (unable to draw labs from site). --16:12 Kayce Valverde R.N. 16:00. intelligent systems engineer, pulse oximeter and NIBP monitor placed on patient; stock crane operator- Lead II and V1; monitor alarms on. --16:12 Kayce Valverde R.N. Checked patient name and birthdate: patient confirmed. Blood samples drawn from the right antecubital space with syringe and 23g butterfly by tech per protocol ; labeled in presence of the patient and sent to lab: rainbow set: cardiac enzymes (1st set). --16:36 Augie Sellers 16:41 07/29/2016 Started bag #1 1000 mL IV Fluids IV NS (Saline); at 1000 mL/hr via site #1 via IV pump. --16:41 Kayce Valverde R.N. EKG time: (1645). EKG was performed by a tech and shown to the ED physician. --16:57 Augie Sellers 17:05 07/29/16. Patient ID band checked for patient name and birthdate. Clean catch urine collected with return of chantelle-colored clear urine; sample sent to lab for urinalysis and culture. Specimen labeled in the presence of the patient. --17:05 Kayce Valverde R.N. DISPOSITION / DISCHARGE Condition at departure: improved. No learning barriers present. --17:26 Kayce Valvered R.N. 17:23 07/29/16. BP: 151/73. HR: 70. RR: 18. O2 saturation: 99%. Pain level now: 0/10. --17:26 Kayce Valverde R.N. 17:27 07/29/16. No learning barriers present. Discharge instructions provided and reviewed with the patient. Reviewed referral to family practice for followup. Verbalized understanding. Written instructions provided. The patient was discharged home. She left the Emergency Department ambulatory and via private vehicle. Roll Edge Stitcher Hand driving. --17:27 Kayce Valverde R.N. Locked/Released at 08/12/2016 6:45 by Rose Castro R.N.
--- NOTE | 2016-07-29 17:13 | ED NURSING NOTES ---
Clinical Report - Nurses [facility] [place] [address] 07/29/2016 15:27 Patient: TIFFANIE HAMILTON TRIAGE Triage time 15:36. Acuity: LEVEL 3. Chief Complaint: ALTERED MENTAL STATUS and CONFUSED. Alert. --15:40 Kayce Valverde R.N. 15:35 07/29/16. BP: 151/96. HR: 73. RR: 18. O2 saturation: 95%. Temp: 97.7 F. Pain level now: 0/10. --15:40 Kayce Valverde R.N. Weight: 71 kg measured. Height/Length: 67 inches Per Patient. BMI: 24.5. --15:38 Kayce Valverde R.N. Medications Aspirin Oral (Tablet 325 mg) 1 tablet, every other day. --15:38 Kayce Valverde R.N. Allergies No Known Drug Allergy. --15:38 Kayce Valverde R.N. History Arrived by EMS. Historian: patient. Primary physician (Dr. Olmedo). This started just prior to arrival and today. SOCIAL HX: Never smoker. No alcohol use or drug use. --15:40 Kayce Valverde R.N. ( EMT reported pt was off balance, and fell forward when reaching to check for pronator drift, and has had ringing in her ears that is new). --15:41 Kayce Valverde R.N. PROBLEMS: Changed Mental Status. Head Injury. Seizure. --15:39 Kayce Valverde R.N. Interventions ID band on patient. To room. --15:40 Kayce Valverde R.N. PHYSICAL ASSESSMENT 15:53 07/29/16. GENERAL / NEURO / PSYCH: The patient is disoriented to situation. Speech within normal limits. Patient appears well-nourished and neat and clean. ( Pt doesn't know when symptoms started, states 2 days ago she didn't feel well, then this morning, tried to make a PCP appointment because she wasn't feeling well at all.). RESPIRATORY: Respirations not labored. --15:53 Kayce Valverde R.N. NURSING PROGRESS NOTES 16:00. Patient identifiers checked. Call light placed in reach. Bed placed in lowest position. Patient ready for evaluation. --16:11 Kayce Valverde R.N. Patient transported to [place] by stretcher with tech. --16:11 Kayce Valverde R.N. 15:57 07/29/2016 Site #1 started via IV in the left forearm with an 20g angiocath, with aseptic technique and good blood return; one attempt. Saline lock flushed with 10 mL saline (unable to draw labs from site). --16:12 Kayce Valverde R.N. 16:00. monitoring engineer, pulse oximeter and NIBP monitor placed on patient; awake overnight monitor- Lead II and V1; monitor alarms on. --16:12 Kayce Valverde R.N. Checked patient name and birthdate: patient confirmed. Blood samples drawn from the right antecubital space with syringe and 23g butterfly by tech per protocol ; labeled in presence of the patient and sent to lab: rainbow set: cardiac enzymes (1st set). --16:36 Augie Sellers 16:41 07/29/2016 Started bag #1 1000 mL IV Fluids IV NS (Saline); at 1000 mL/hr via site #1 via IV pump. --16:41 Kayce Valverde R.N. EKG time: (1645). EKG was performed by a tech and shown to the ED physician. --16:57 Augie Sellers 17:05 07/29/16. Patient ID band checked for patient name and birthdate. Clean catch urine collected with return of chantelle-colored clear urine; sample sent to lab for urinalysis and culture. Specimen labeled in the presence of the patient. --17:05 Kacye Valverde R.N. DISPOSITION / DISCHARGE Condition at departure: improved. No learning barriers present. --17:26 Kayce Valverde R.N. 17:23 07/29/16. BP: 151/73. HR: 70. RR: 18. O2 saturation: 99%. Pain level now: 0/10. --17:26 Kayce Valverde R.N. 17:27 07/29/16. No learning barriers present. Discharge instructions provided and reviewed with the patient. Reviewed referral to family practice for followup. Verbalized understanding. Written instructions provided. The patient was discharged home. She left the Emergency Department ambulatory and via private vehicle. Air Purifier Servicer driving. --17:27 Kayce Valverde R.N. Locked/Released at 08/12/2016 6:45 by Rose Castro R.N.
--- NOTE | 2016-07-29 17:13 | ED ORDER SUMMARY ---
..... Patient: TIFFANIE HAMILTON OrderSheet [facility] VisitID: [id number] [place] [address] 70y, F Registration Date/Time: 07/29/2016 ORDER SHEET Weight: 71 kg (measured) Allergies: No Known Drug Allergy GENERAL ORDERS: Door Frame Assembler Machine (Continuous) (16:07/29/2016 HBivens A.R.N.P.) (Ack 16:02 TBergley) (16:12 LSullivan R.N.) CT Head wo Cont Urgent (16:07/29/2016 HBivens A.R.N.P.) (Ack 16:02 TBergley) (16:36 LSullivan R.N.) CBC w Diff Urgent (16:07/29/2016 HBivens A.R.N.P.) (Ack 16:02 TBergley) (16:35 TBergley) CMP Urgent (16:07/29/2016 HBivens A.R.N.P.) (Ack 16:02 TBergley) (16:35 TBergley) UA-Culture if indicated Urgent (16:00 07/29/2016 HBivens A.R.N.P.) (Ack 16:02 TBergley) (17:04 LSullivan R.N.) Urine Drug Screen Urgent (16:00 07/29/2016 HBivens A.R.N.P.) (Ack 16:02 TBergley) (17:04 LSullivan R.N.) EKG - ER Stat (16:07/29/2016 HBivens A.R.N.P.) (Ack 16:02 TBergley) (16:37 TBergley) MEDICATION ORDERS: IV FLUIDS: IV NS : initial bolus 1000 mL (1000 mL/hr), then none - (NOW) (16:07/29/2016 HBivens A.R.N.P.) (16:41 LSullivan R.N.) IV Saline Lock (:07/29/2016 HBivens A.R.N.P.) (16:12 LSullivan R.N.) ORDER SHEET NOTES: [Electronically signed by Sharon Reynolds (22:33 07/29/2016)] [Electronically signed by Rose Castro R.N. (06:45 08/12/2016)] [Electronically locked/signed by Rose Castro R.N. (06:45 08/12/2016)]
--- NOTE | 2016-07-29 17:13 | ED CLINICAL REPORT ---
Clinical Report - Physicians/Mid Levels [facility] [address] [place] [address] 07/29/2016 15:27 Patient: TIFFANIE HAMILTON Time Seen: 15:52; upon arrival, initial patient contact, initial documentation, patient care assumed. Arrived- By ambulance. Historian- patient. HISTORY OF PRESENT ILLNESS Chief Complaint: DIZZINESS. Severity described as severe at its maximum. When seen in the E.D., severity described as mild. Modifying factors- worsened by turning head, standing up and changing position. Relieved by nothing. This started today and is still present but is improving. Described as a sense of rotation and confusion, sense of falling and feeling off balance. Not described as feeling light-headed, faint or weak all over. No nausea, vomiting, hearing loss, tinnitus or ear pain. (pt was calling pcp to cancel an appt for tomorrow, and when she told them she was dizzy, they told her to call 911 or they would, so she called, pt stated she couldn't remember all the events from this morning, and that she had been under lots of stress this past month). Similar symptoms previously: Once, as bad. ( txed here 1 month ago for same thing). Recent medical care: Not recently seen/assessed. REVIEW OF SYSTEMS No headache, double vision, fainting episodes, head injury or chest pain. No numbness, fever, difficulty breathing or abdominal pain. She has had weakness. No difficulty walking. All systems otherwise negative, except as recorded above. PAST HISTORY See nurses notes. ( PROBLEMS: Changed Mental Status. Head Injury. Seizure. --15:39 Kayce Valverde R.N.). SOCIAL HISTORY Never smoker. No alcohol use or drug use. No recent travel. FAMILY HISTORY Negative. ADDITIONAL NOTES The nursing notes have been reviewed with agreement regarding the chief complaint, HPI, ROS, PMH and patient medications and allergies. PHYSICAL EXAM Vital Signs: 07/29/2016 15:35 BP: 151/96. HR: 73. RR: 18. O2 saturation: 95%. Temp: 97.7 F. Pain level now: 0/10. Have been reviewed as abnormal and appear to be correct. Hypertensive. Heart rate normal. Respiratory rate normal. Temperature normal. Oxygen saturation normal. Appearance: Alert. No acute distress. Eyes: Pupils equal, round and reactive to light. No nystagmus. Extraocular movements normal. ENT: Normal ENT inspection. TM's normal. Moist mucous membranes. Pharynx normal. Neck: Normal inspection. Neck supple. CVS: Normal heart rate and rhythm. Heart sounds normal. Pulses normal. Respiratory: No respiratory distress. Breath sounds normal. Abdomen: Soft and nontender. No organomegaly. Back: Normal inspection. Skin: Skin warm and dry. Normal skin color. No rash. Normal skin turgor. Extremities: Extremities exhibit normal ROM. No lower extremity edema. Neuro: Alert. Oriented X 3. Mood/affect normal. Speech normal. Cranial nerves normal (as tested). No cerebellar findings. No motor deficit. No sensory deficit. LABS, X-RAYS, AND EKG EKG: EKG time: (1645). No acute process. No acute ischemia. Rate: 65. Incomplete RBBB. Abnormal axis. Left axis deviation. The study has been interpreted contemporaneously by me (and Dr Stinson). The EKG appears to be a good tracing. Interpretation time: 1650. CT Head: No acute disease. (IMPRESSION: 1. No CT evidence of acute intracranial process. All CT scans at this facility use dose modulation, iterative reconstruction, and/or weight-based dosing when appropriate to reduce radiation dose to as low as reasonably achievable. Electronically Final signed by:Chris Begum MD 07/29/2016 4:30:29 PM). Laboratory Tests: UA-Culture if indicated: (MIYA: 07/29/2016 17:00) ( MsgRcvd 07/29/2016 17:26) Final results Test Result Flag Units (Reference) URINE COLOR YELLOW URINE APPEARANCE CLEAR URINE GLUCOSE NEGATIVE (NEGATIVE) URINE BILIRUBIN NEGATIVE (NEGATIVE) URINE KETONE NEGATIVE (NEGATIVE) URINE SPECIFIC GRAVITY 1.015 (1.010-1.030) URINE PH 6.0 (5.0-8.0) URINE PROTEIN NEGATIVE (NEGATIVE) URINE UROBILINOGEN 0.2 EU/dL (0.2-1.0) URINE NITRITE NEGATIVE (NEGATIVE) URINE BLOOD NEGATIVE (NEGATIVE) URINE LEUK ESTERASE NEGATIVE (NEGATIVE) URINE RBC NONE SEEN rbc/hpf (0-1) URINE WBC 0-1 wbc/hpf (0-1) URINE EPITHELIAL CELLS 0-1 EPI/hpf (0-5) URINE BACTERIA NONE SEEN (NONE SEEN) URINE COMMENT CULT NOT INDICATED 1+ MUCUSURINE CULTURES ARE SET-UP BASED ON THE FOLLOWING CRITERIA:POSITIVE NITRITEPOSITIVE LEUKOCYTE ESTERASEGREATER THAN 10 WHITE BLOOD CELLSMODERATE (2+) OR GREATER BACTERIA CBC w Diff: (MIYA: 07/29/2016 16:31) ( MsgRcvd 07/29/2016 16:48) Final results Test Result Flag Units (Reference) WHITE BLOOD COUNT 5.5 K/uL (4.5-11.5) RED BLOOD COUNT 4.71 M/uL (4.00-5.20) HEMOGLOBIN 13.7 gm/dL (12.0-16.0) HEMATOCRIT 41.2 % (36.0-46.0) MEAN CELL VOLUME 87 fL (80-100) MEAN CORPUSCULAR HGB 29 pg (26-34) MEAN CORPUSCULAR HGB CONC 33 g/dL (31-37) RED CELL DISTRIBUTION WIDTH 13.1 % (11.6-14.8) PLATELET COUNT 202 K/uL (150-400) NEUTROPHIL % 73.6 % (50-75) LYMPH % 19.7 L % (25-40) MONO % 4.9 % (3-14) EOSINOPHIL % 1.5 % (0-4) BASOPHIL % 0.3 % (0-2) Urine Drug Screen: (MIYA: 07/29/2016 17:00) ( MsgRcvd 07/29/2016 17:35) Final results Test Result Flag Units (Reference) AMPHETAMINE/METHAMPHETAMINE NEGATIVE (NEGATIVE) BARBITURATE NEGATIVE (NEGATIVE) BENZODIAZEPINE NEGATIVE (NEGATIVE) CANNABINOID NEGATIVE (NEGATIVE) COCAINE NEGATIVE (NEGATIVE) ECSTASY NEGATIVE (NEGATIVE) METHADONE NEGATIVE (NEGATIVE) OPIATE NEGATIVE (NEGATIVE) The urine drug screen is a qualitative screening test fordrug overdose and abuse. All screen results should beconsidered as presumptive.Drugs screened for are as follows:BenzodiazepinesCocaineAmphetamines/MetamphetaminesTHC (Tetrahydrocannabinol)OpiatesBarbituratesEcstasyMethadonePositive results are unconfirmed. For confirmation, notifythe lab for the specimen to be sent to the reference lab.All confirmations must be performed by a differentmethodology.The ingestion of natural herbal and plant productscontaining Ephedra/Ephedra metabolites can produce in urineone or more substances capable of cross reacting withamphetamine/methamphetamine immunoassays. These testsprovide a preliminary result only. A more specificalternative chemical method must be used to obtain aconfirmed analytical result. CMP: (MIYA: 07/29/2016 16:31) ( MsgRcvd 07/29/2016 16:57) Final results Test Result Flag Units (Reference) GLUCOSE 104 mg/dL (70-110) BUN 20 H mg/dL (7-18) CREATININE 0.9 mg/dL (0.6-1.3) Estimated GFR >60 mL/min Estimated GFR- >60 mL/min Note: Persistent reduction over 3 months in eGFR<60 mL/min/1.73 m2 defines CKD. Patients with eGFR values>=60 mL/min/1.73 m2 may also have CKD if evidence ofpersistent proteinuria. Additional information may be foundat www.kidney.org. SODIUM 143 mmol/L (136-145) POTASSIUM 4.3 mmol/L (3.5-5.1) CHLORIDE 106 mmol/L (98-107) CARBON DIOXIDE 27 mmol/L (21-32) CALCIUM 9.2 mg/dL (8.5-10.1) TOTAL PROTEIN 7.5 g/dL (6.4-8.2) ALBUMIN 3.8 g/dL (3.3-5.0) BILIRUBIN, TOTAL 0.4 mg/dL (0.0-1.0) ALKALINE PHOSPHATASE 76 U/L (46-116) AST (SGOT) 20 U/L (15-37) ALT (SGPT) 23 U/L (12-78) . PROGRESS AND PROCEDURES Course of Care: 1705. pt stating she felt completely fine, dizziness gone, and she was ready to go home. Patient counseled in person regarding the patient's stable condition, test results and diagnosis. 1705. Differential Diagnosis: I considered labyrinthitis, drug-related etiology, benign positional vertigo, brainstem TIA, brainstem CVA, drug-related cause of central vertigo, seizure, anxiety and metaphorical dizziness such as depression, chronic fatigue, etc as a possible cause of dizziness in this patient. This is a partial list of diagnoses considered. Above considerations are based on history, physical exam, laboratory data, EKG and other information. Differential diagnosis was discussed with patient. Disposition: Discharged home in good and improved condition (17:13). Condition: good and stable. CLINICAL IMPRESSION Acute dizziness INSTRUCTIONS (htn). Warnings: GENERAL WARNINGS: Return or contact your physician immediately if your condition worsens or changes unexpectedly, if not improving as expected, or if other problems arise. SPECIFICALLY, return if you develop chest pain, neck pain, jaw pain, shoulder pain, arm pain, back pain, fluttering sensation in your chest, lightheadedness, fainting, numbness, weakness or extreme fatigue. Follow-up: Follow up with your doctor in about two days even if well. Call for an appointment. Summary of care provided to patient. Understanding of the discharge instructions verbalized by patient. (Electronically signed by Sharon Reynolds A.R.N.P. 07/29/2016 22:33) Addenda for TIFFANIE HAMILTON VisitID: [id number] Date: 07/29/2016 08/12/2016 6:44 Charting complete Locked for billing purposes (Electronically signed by Rose Castro R.N. - 08/12/2016 6:44)
--- NOTE | 2016-08-12 06:45 | ED MAR SUMMARY ---
..... Medication Administration Record [facility] [address] [place] [address] Patient: TIFFANIE HAMILTON Visit ID: [id number] 70y, F Weight: 71.0 kg Height/Length: 67 in BMI: 24.5 ALLERGIES: No Known Drug Allergy Start 16:41 07/29/2016 Kayce Valverde RPeterNPeter Medication Administered: IV NS (SALINE), Dose: IV Fluids, Rate: 1000 mL/hr, Dispensed: 1000 mL bag, Site: #1 left forearm. Medication Ordered: IV NS : initial bolus 1000 mL (1000 mL/hr), then none - (NOW).
--- NOTE | 2016-08-12 06:45 | ED DISCHARGE INSTRUCTIONS ---
Patient: TIFFANIE HAMILTON General Instructions [facility] VisitID: [id number] [place] [address] 70y, F Registration Date/Time: 07/29/2016 Acute dizziness INSTRUCTIONS (htn). Warnings: GENERAL WARNINGS: Return or contact your physician immediately if your condition worsens or changes unexpectedly, if not improving as expected, or if other problems arise. SPECIFICALLY, return if you develop chest pain, neck pain, jaw pain, shoulder pain, arm pain, back pain, fluttering sensation in your chest, lightheadedness, fainting, numbness, weakness or extreme fatigue. Follow-up: Follow up with your doctor in about two days even if well. Call for an appointment. Summary of care provided to patient. Understanding of the discharge instructions verbalized by patient. ADDITIONAL INFORMATION Dizziness [Uncertain Cause] Dizziness is a common symptom sometimes described as "lightheadedness" or feeling like you are going to faint. If it lasts for only a few seconds and is related to changes in position (such as getting up after lying or sitting for a long time), it is usually not a sign of anything serious. Dizziness that lasts for minutes to hours, or comes on for no apparent reason, may be a sign of a more serious problem (such as dehydration, a medicine reaction, disease of the heart or brain). Today's exam did not show an exact cause for your dizzy spell . Sometimes additional tests are required before a cause can be found. Therefore, it is important to follow up with your doctor if your symptoms continue. Home Care: 1) If a dizzy spell occurs and lasts more than a few seconds, lie down until it passes. If you are lying down, then you cannot hurt yourself by falling if you do faint. 2) Do not drive or operate dangerous equipment until the dizzy spells have stopped for at least 48 hours. 3) If dizzy spells occur with sudden standing, this may be a sign of mild dehydration. Drink extra fluids over the next few days. 4) If you recently started a new medicine or if you had the dose of a current medicine increased (especially blood pressure medicine), talk with the prescribing doctor about your symptoms. Dose adjustments may be needed. Follow Up with your doctor for further evaluation within the next seven days, if your symptoms continue. Get Prompt Medical Attention if any of the following occur: -- Worsening of your symptoms -- Fainting, headache or seizure -- Repeated vomiting -- Feeling like you or the room is spinning -- Chest, arm, neck, back or jaw pain -- Palpitations (the sense that your heart is fluttering or beating fast or hard) -- Shortness of breath -- Blood in vomit or stool (black or red color) -- Weakness of an arm or leg or one side of the face -- Difficulty with speech or vision Benign Positional Vertigo The inner ear is located behind the middle ear. It is a part of the balance center of the body. It contains small calcium particles within fluid filled canals (semi-circular canals). These particles can move out of position as a result of aging, head trauma or disease of the inner ear. Once that happens, movement of the head into certain positions may cause the particles to stimulate the inner ear and create the feeling of vertigo. Vertigo is a false feeling of motion (as if you or the room is spinning). A vertigo attack may cause sudden nausea, vomiting and heavy sweating. Severe vertigo causes a loss of balance and may result in falling. During an attack of vertigo, head movement and body position changes will worsen symptoms. An episode of vertigo may last seconds, minutes or hours. Once you are over the first episode of vertigo, it may never return. Sometimes symptoms recur off and on over several weeks or longer. Home Care: If symptoms are severe, rest quietly in bed. Change positions slowly. There is usually one position that will feel best, such as lying on one side or lying on your back with your head slightly raised on pillows. Do not drive or work with dangerous machinery for one week after symptoms disappear, in case of a sudden return of symptoms. Take medicine as prescribed to relieve your symptoms. Unless another medicine was prescribed for nausea, vomiting and vertigo, you may use [id number] motion sickness pills, such as meclizine (Bonine, Bonamine, Antivert) or dimenhydrinate (Dramamine). Follow Up with your doctor or as directed by our staff. Report any persistent ringing in the ear or hearing loss to your doctor. [NOTE: If you had a CT or MRI scan, it will be reviewed by a specialist. You will be notified of any new findings that may affect your care.] Get Prompt Medical Attention if any of the following occur: Worsening of vertigo not controlled by the medicine prescribed Repeated vomiting not controlled by the medicine prescribed Increased weakness or fainting Severe headache or unusual drowsiness or confusion Weakness of an arm or leg or one side of the face Difficulty with speech or vision Seizure You have been given the following additional information: Dizziness, Unk Cause Benign Positional Vertigo (Electronically signed by Sharon Reynolds A.R.N.P. 07/29/2016 22:33)
--- NOTE | 2016-08-12 06:45 | ED MED RECONCILIATION SUMMARY ---
Patient: TIFFANIE HAMILTON Medication Reconciliation Report [facility] VisitID: [id number] [address] [place] [address] 70y, F Registration Date/Time: 07/29/2016 Weight: 71 kg Height/Length: 67 in. BMI: 24.5 ALLERGIES: No Known Drug Allergy The patient's Home Medications are listed below: THE FOLLOWING MEDICATIONS NEED TO BE RECONCILED: Aspirin Oral (325 mg) 1 tablet, every other day The source(s) of the original Home Medication information: Not obtained. The following Medications were given to the patient in the Emergency Department: IV NS IV Fluids bolus 0, then 1000 mL/hr, administered: 07/29/2016 4:41:00 PM The following Medications were prescribed to the patient: None.
--- NOTE | 2016-08-12 06:45 | ED MAR SUMMARY ---
..... Medication Administration Record [facility] [address] [place] [address] Patient: TIFFANIE HAMILTON Visit ID: [id number] 70y, F Weight: 71.0 kg Height/Length: 67 in BMI: 24.5 ALLERGIES: No Known Drug Allergy Start 16:41 07/29/2016 Kayce Valverde RPeterNPeter Medication Administered: IV NS (SALINE), Dose: IV Fluids, Rate: 1000 mL/hr, Dispensed: 1000 mL bag, Site: #1 left forearm. Medication Ordered: IV NS : initial bolus 1000 mL (1000 mL/hr), then none - (NOW).
--- NOTE | 2016-08-12 06:45 | ED MED RECONCILIATION SUMMARY ---
Patient: TIFFANIE HAMILTON Medication Reconciliation Report [facility] VisitID: [id number] [address] [place] [address] 70y, F Registration Date/Time: 07/29/2016 Weight: 71 kg Height/Length: 67 in. BMI: 24.5 ALLERGIES: No Known Drug Allergy The patient's Home Medications are listed below: THE FOLLOWING MEDICATIONS NEED TO BE RECONCILED: Aspirin Oral (325 mg) 1 tablet, every other day The source(s) of the original Home Medication information: Not obtained. The following Medications were given to the patient in the Emergency Department: IV NS IV Fluids bolus 0, then 1000 mL/hr, administered: 07/29/2016 4:41:00 PM The following Medications were prescribed to the patient: None.
== END 2016-07-29 17:25 | disposition home or self-care (01) ==
LOC: ED SRH 15:27
DX: R42 Dizziness and giddiness (principal)
CPT/HCPCS: 90004; 90100; 92760; 92761; 92762; 92763; 92764; 92765; 92766; 92767; 95059